=== PATIENT | female | born 1975 | race Caucasian/White ===

== ENCOUNTER 2016-06-07 22:11 | Inpatient (IN) | payer MEDICARE, MEDICAID ==
[~2016-06-07] VITALS: Ht 172.7 cm; Wt 108.0 kg
[2016-06-07] MEDS ORDERED: NICOTINE 21 MG/24 HR TRANSDERM ONE (23:39)
[2016-06-08] MEDS ORDERED: LORAZEPAM 2 MG/ML VIAL IM PRN (01:00)
[2016-06-08] MEDS ORDERED: ALU/MAG/SIM 30 ML UDC PO PRN (01:00)
[2016-06-08] MEDS ORDERED: HALOPERIDOL 5 MG TAB PO PRN (01:00)
[2016-06-08] MEDS ORDERED: HALOPERIDOL 5 MG/ML VIAL IM PRN (01:00)
[2016-06-08] MEDS ORDERED: TRAZODONE 50 MG TAB PO PRN (01:00)
[2016-06-08] MEDS ORDERED: DIPHENHYDRAMINE 50 MG CAP PO PRN (01:00)
[2016-06-08] MEDS ORDERED: ACETAMINOPHEN 325 MG TAB PO PRN (01:00)
[2016-06-08] MEDS ORDERED: DIPHENHYDRAMINE 50 MG/ML VIAL IM PRN (01:00)
[2016-06-08] MEDS ORDERED: MAG HYDROX 30 ML UDC PO PRN (01:00)
[2016-06-08] MEDS ORDERED: LORAZEPAM 2 MG TAB PO PRN (01:00)
[2016-06-08 01:58] VITALS: BP_SYST 110; RESP 18; TEMP 98.1
[2016-06-08 02:05] VITALS: Ht 172.7 cm; Wt 108.0 kg
[2016-06-08] MEDS ORDERED: *PINK BRACELET XX ONE (05:10)
[2016-06-08] MEDS: *HOME MEDS KEPT IN PHARMACY XX SCH ×2 (08:00→20:00)
[2016-06-08 08:21] VITALS: BP_SYST 117; RESP 18; TEMP 97.5
[2016-06-08] MEDS: MULTIVITS/MINERALS (THERAGRAN M) TAB PO SCH (08:25)
[2016-06-08] MEDS: NICOTINE 21 MG/24 HR TRANSDERM SCH (11:37)
[2016-06-08] MEDS: ESCITALOPRAM 10 MG TAB PO SCH (11:37)
[2016-06-08] MEDS: EXCEDRIN EXTRA STR TAB PO PRN ×2 (11:37→17:30)
[2016-06-08 20:28] VITALS: BP_SYST 130; RESP 18; TEMP 98.5
[2016-06-09] MEDS: *HOME MEDS KEPT IN PHARMACY XX SCH ×2 (08:00→20:00)
[2016-06-09] MEDS: ESCITALOPRAM 10 MG TAB PO SCH (08:12)
[2016-06-09] MEDS: MULTIVITS/MINERALS (THERAGRAN M) TAB PO SCH (08:12)
[2016-06-09] MEDS: NICOTINE 21 MG/24 HR TRANSDERM SCH (08:12)
[2016-06-09 09:08] VITALS: BP_SYST 115; RESP 18; TEMP 97.7
[2016-06-09] MEDS: CETIRIZINE 10 MG TAB PO SCH (11:15)
[2016-06-09] MEDS: EXCEDRIN EXTRA STR TAB PO PRN (12:29)
[2016-06-09] MEDS: hydrOXYzine PAM 50 MG CAP PO PRN ×2 (15:53→22:03)
[2016-06-09 19:05] VITALS: BP_SYST 128; RESP 16; TEMP 98.4
[2016-06-10 07:28] VITALS: BP_SYST 114; RESP 17; TEMP 98.5
[2016-06-10] MEDS: *HOME MEDS KEPT IN PHARMACY XX SCH ×2 (08:00→20:00)
[2016-06-10] MEDS: CETIRIZINE 10 MG TAB PO SCH (09:00)
[2016-06-10] MEDS: MULTIVITS/MINERALS (THERAGRAN M) TAB PO SCH (09:00)
[2016-06-10] MEDS: NICOTINE 21 MG/24 HR TRANSDERM SCH (09:00)
[2016-06-10] MEDS: ESCITALOPRAM 10 MG TAB PO SCH (09:00)
[2016-06-10] MEDS: hydrOXYzine PAM 50 MG CAP PO PRN ×2 (16:01→21:50)
[2016-06-10 19:40] VITALS: BP_SYST 122; RESP 16; TEMP 98.8
[2016-06-11] MEDS: *HOME MEDS KEPT IN PHARMACY XX SCH (08:00)
[2016-06-11 08:23] VITALS: BP_SYST 107; RESP 17; TEMP 98.8
[2016-06-11] MEDS: ESCITALOPRAM 10 MG TAB PO SCH (08:58)
[2016-06-11] MEDS: NICOTINE 21 MG/24 HR TRANSDERM SCH (08:58)
[2016-06-11] MEDS: MULTIVITS/MINERALS (THERAGRAN M) TAB PO SCH (08:58)
[2016-06-11] MEDS: CETIRIZINE 10 MG TAB PO SCH (08:58)
[2016-06-11 10:18] VITALS: BP_SYST 107; RESP 17; TEMP 98.8
== END 2016-06-11 13:03 | disposition home or self-care (01) | DRG 885 ==
LOC: ENRESERVDT → ENRESERVTM → ER 22:11 → EMR 06-08 00:45 → PSY 06-08 01:08
PROVIDERS: ADMIT Psychiatry & Neurology Psychiatry; ATTEND Psychiatry & Neurology Psychiatry
DX: F33.2 Major depressive disorder, recurrent severe without psychotic features (principal); F13.10 Sedative, hypnotic or anxiolytic abuse, uncomplicated; M19.90 Unspecified osteoarthritis, unspecified site; J44.9 Chronic obstructive pulmonary disease, unspecified; G43.909 Migraine, unspecified, not intractable, without status migrainosus; M79.7 Fibromyalgia; J31.0 Chronic rhinitis; F11.10 Opioid abuse, uncomplicated; F41.9 Anxiety disorder, unspecified; F17.210 Nicotine dependence, cigarettes, uncomplicated
CPT/HCPCS: 36415; 70450; 80053; 80307; 80320; 80329; 81001; 84439; 84443; 84703; 85025; 85610; 87088